=== PATIENT | female | born 1985 | race Caucasian/White ===

== ENCOUNTER 2016-08-12 23:18 | Emergency (ER) | payer OTHER ==
--- NOTE | 2016-08-13 01:41 | ED ORDER SUMMARY ---
..... Patient: KEIRA JOY OrderSheet [facility] VisitID: [id number] [address] [place] [address] 31y, F Registration Date/Time: 08/12/2016 ORDER SHEET Weight: 88.4 kg (stated) Allergies: Amoxicillin GENERAL ORDERS: POC - Urine hCG (00:43 08/13/2016 Ezra PEREZ) (0:46 Nara R.NContreras) Abdomen 1V (NO XRAY IF PREG TEST IS POSITIVE) Urgent (00:43 08/13/2016 Ezra PEREZ) (Ack 0:52 Petra) (0:58 Kell) MEDICATION ORDERS: IV FLUIDS: ORDER SHEET NOTES: [Electronically signed by Lorin Acuna R.N. (01:48 08/13/2016)] [Electronically signed by Matt Pizarro MD (11:40 08/14/2016)] [Electronically locked/signed by Lorin Acuna R.N. (01:48 08/13/2016)]
--- NOTE | 2016-08-13 01:41 | ED ORDER SUMMARY ---
..... Patient: KEIRA JOY OrderSheet [facility] VisitID: [id number] [address] [place] [address] 31y, F Registration Date/Time: 08/12/2016 ORDER SHEET Weight: 88.4 kg (stated) Allergies: Amoxicillin GENERAL ORDERS: POC - Urine hCG (00:43 08/13/2016 Ezra PEREZ) (0:46 Nara R.NContreras) Abdomen 1V (NO XRAY IF PREG TEST IS POSITIVE) Urgent (00:43 08/13/2016 Ezra PEREZ) (Ack 0:52 Petra) (0:58 Kell) MEDICATION ORDERS: IV FLUIDS: ORDER SHEET NOTES: [Electronically signed by Lorin Acuna R.N. (01:48 08/13/2016)] [Electronically signed by Matt Pizarro MD (11:40 08/14/2016)] [Electronically locked/signed by Lorin Acuna R.N. (01:48 08/13/2016)]
--- NOTE | 2016-08-13 01:41 | ED CLINICAL REPORT ---
Clinical Report - Physicians/Mid Levels [facility] [address] [place] [address] 08/12/2016 23:19 Patient: LETY JOY Time Seen: 00:34. Arrived- By private vehicle. Historian- patient. HISTORY OF PRESENT ILLNESS Chief Complaint: RECTAL FOREIGN BODY. Modifying factors. Not worsened by anything. Not relieved by anything. 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 She believes that it may be in her rectum. It was shaped as follows, the base was a spherical handle, the base above that was like a triangle which tapered to the top. She had a bowel movement without problems since then. She has no pain or other symptoms. No current or associated symptoms. Similar symptoms previously: None. REVIEW OF SYSTEMS No fever, cough, difficulty breathing, chest pain or abdominal pain. No nausea, vomiting or diarrhea. PAST HISTORY Negative. SOCIAL HISTORY Never smoker. ADDITIONAL NOTES The nursing notes have been reviewed. PHYSICAL EXAM Vital Signs: 08/13/2016 01:45 BP: 113/74. HR: 66. RR: 15. O2 saturation: 98%. Sykes-Lewis pain scale: 2/10. 08/12/2016 23:40 BP: 120/81. HR: 73. RR: 15. O2 saturation: 100%. Pain level now: 0/10. Appearance: Alert. No acute distress. ENT: Pharynx normal. CVS: Heart sounds normal. Respiratory: No respiratory distress. Breath sounds normal. Abdomen: No visible injury. Soft and nontender. Bowel sounds normal. Rectal: Rectal exam normal and nontender. Skin: Skin warm. Normal skin color. Extremities: Extremities exhibit normal ROM. No lower extremity edema. LABS, X-RAYS, AND EKG KUB: (Neg by my exam: RR PROCEDURE: XR ABDOMEN 1 VIEW INDICATION: RECTAL FOREIGN BODY TECHNIQUE: Single view supine abdomen. COMPARISON: None. FINDINGS: No free intraperitoneal air. Moderate stool present. Nonspecific, nonobstructive bowel gas pattern. No suspicious mass, mass effect, or calcifications. No foreign bodies. The visible osseous structures are intact. IMPRESSION: 1. Normal single view abdomen. 2. No radiodense foreign bodies. Dictated by: ROMMEL PHAN MD D: ANDREIA;08/13/16 0739 <Electronically signed by ROMMEL PHAN MD in OV> 08/13/16738). The X-rays were independently viewed by me and interpreted by the radiologist. PROGRESS AND PROCEDURES Course of Care: 07:35 08/13/16. discussed followup with Dr Larsen No definite evidence of current rectal FB but is is hard to prove a negative. Lety may need a lower endoscopy as the potential for rectal complications could be serious. Disposition: Discharged. Condition: stable. CLINICAL IMPRESSION POSSIBLE RECTAL FOREIGN BODY. INSTRUCTIONS (I COULD NOT FIND THE FOREIGN BODY CAREFULLY SEARCH THE ROOM WHERE THE OBJECT HILARIO BE. IF IT IS FOUND THE PROBLEM IS OVER. IF IT CANNOT BE FOUND SEE THE GENERAL SURGEON. YOU MAY NEED TO HAVE YOUR COLON/RECTUM EXAMINED WITH AN ENDOSCOPE. UNTREATED A FOREIGN BODY COULD RESULT IN COLON PERFORATION.). Understanding of the discharge instructions verbalized by patient. Follow-up with: Nicola Canchola MD, General Surgeon, , [facility], [address] [place] [address] Follow up today. Call for the next available appointment. (Electronically signed by Matt Pizarro MD 08/14/2016 11:40)
--- NOTE | 2016-08-13 01:41 | ED NURSING NOTES ---
Clinical Report - Nurses [facility] [address] [place] [address] 08/12/2016 23:19 Patient: KEIRA JOY TRIAGE Triage time 23:41. Acuity: LEVEL 4. Chief Complaint: (possible foreign object in rectum). Alert. No acute distress. --23:45 Lorin Acuna R.N. 23:40 08/12/16. BP: 120/81. HR: 73. RR: 15. O2 saturation: 100%. Pain level now: 0/10. --23:45 Lorin Acuna R.N. Weight: 88.4 kg stated. Height/Length: 68 inches Per Patient. BMI: 29.6. --23:44 Lorin Acuna R.N. Medications FLUoxetine HCl Oral. --23:43 Lorin Acuna R.N. Allergies Amoxicillin.(itching, rash) --23:44 Lorin Acuna R.N. History Arrived by private vehicle. Historian: patient. Primary physician (Lisa). ( pt states she was using a new sex toy and felt it inside her and then states "It was gone", she could not find it in the room and thinks it may be in her rectum. Pt has had BM since.). This started just prior to arrival. Onset. (about 1 hours [employer] INST[employer]ER). PAST MEDICAL HX: Immunizations: up-to-date. Last normal menstrual period was 4 weeks ago. Sexual history - sexually active. No contraception. SOCIAL HX: Never smoker. Occasional alcohol use. No drug use. NUTRITIONAL RISK ASSESSMENT: The nutritional risk assessment revealed no deficiencies. FUNCTIONAL ASSESSMENT: Functional assessment: no impairments noted. --23:45 Lroin Acuna R.N. PROBLEMS: no known problems. ADDITIONAL SURGERIES: no known surgeries. PHYSICAL ASSESSMENT Ambulatory to room. GENERAL / NEURO / PSYCH: Alert. Oriented X 4. Appears in no acute distress. HEENT: Mucous membranes are pink. RESPIRATORY: Respirations not labored. CVS: Capillary refill less than 2 seconds. SKIN: Skin is warm and dry. --23:45 Lorin Acuna R.N. NURSING PROGRESS NOTES Head of bed elevated. Two patient identifiers checked. Call light placed in reach. Side rails up x 1. Bed placed in lowest position. Brakes of bed on. --23:45 Lorin Acuna R.N. Patient ready for evaluation- chart flagged. --23:45 Lorin Acuna R.N. 00:40- pt ambulates to restroom to obtain urine sample. normal gait noted, no obvious distress. --00:47 Lorin Acuna R.N. 00:45. Patient ID band checked for patient name and birthdate: patient confirmed. Instructions provided to collect clean catch urine and patient verbalized understanding urine collected with return of yellow-colored clear urine; sample sent to lab. Specimen labeled in the presence of the patient. Urine test negative. animal control officer check passed. --00:47 Lorin Acuna R.N. DISPOSITION / DISCHARGE Condition at departure: stable. No learning barriers present. Discharge instructions provided and reviewed with the patient. Follow up contact number. Patient verbalized understanding. Written instructions provided in [place]raini. The patient was discharged home. She left the Emergency Department ambulatory and via private vehicle. Patient driving. --01:48 Lorin Acuna R.N. 01:45 08/13/16. BP: 113/74. HR: 66. RR: 15. O2 saturation: 98% on room air. Temp: deferred. Sykes-Lewis pain scale: 2/10. --01:48 Lorin Acuna R.N. Locked/Released at 08/13/2016 1:48 by Lorin Acuna R.N.
--- NOTE | 2016-08-13 01:41 | ED NURSING NOTES ---
Clinical Report - Nurses [facility] [address] [place] [address] 08/12/2016 23:19 Patient: KEIRA JOY TRIAGE Triage time 23:41. Acuity: LEVEL 4. Chief Complaint: (possible foreign object in rectum). Alert. No acute distress. --23:45 Lorin Acuna R.N. 23:40 08/12/16. BP: 120/81. HR: 73. RR: 15. O2 saturation: 100%. Pain level now: 0/10. --23:45 Lorin Acuna R.N. Weight: 88.4 kg stated. Height/Length: 68 inches Per Patient. BMI: 29.6. --23:44 Lorin Acuna R.N. Medications FLUoxetine HCl Oral. --23:43 Lorin Acuna R.N. Allergies Amoxicillin.(itching, rash) --23:44 Lorin Acuna R.N. History Arrived by private vehicle. Historian: patient. Primary physician (Lisa). ( pt states she was using a new sex toy and felt it inside her and then states "It was gone", she could not find it in the room and thinks it may be in her rectum. Pt has had BM since.). This started just prior to arrival. 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 PAST MEDICAL HX: Immunizations: up-to-date. Last normal menstrual period was 4 weeks ago. Sexual history - sexually active. No contraception. SOCIAL HX: Never smoker. Occasional alcohol use. No drug use. NUTRITIONAL RISK ASSESSMENT: The nutritional risk assessment revealed no deficiencies. FUNCTIONAL ASSESSMENT: Functional assessment: no impairments noted. --23:45 Lorin Acuna R.N. PROBLEMS: no known problems. ADDITIONAL SURGERIES: no known surgeries. PHYSICAL ASSESSMENT Ambulatory to room. GENERAL / NEURO / PSYCH: Alert. Oriented X 4. Appears in no acute distress. HEENT: Mucous membranes are pink. RESPIRATORY: Respirations not labored. CVS: Capillary refill less than 2 seconds. SKIN: Skin is warm and dry. --23:45 Lorin Acuna R.N. NURSING PROGRESS NOTES Head of bed elevated. Two patient identifiers checked. Call light placed in reach. Side rails up x 1. Bed placed in lowest position. Brakes of bed on. --23:45 Lorin Acuna R.N. Patient ready for evaluation- chart flagged. --23:45 Lorin Acuna R.N. 00:40- pt ambulates to restroom to obtain urine sample. normal gait noted, no obvious distress. --00:47 Lorin Acuna R.N. 00:45. Patient ID band checked for patient name and birthdate: patient confirmed. Instructions provided to collect clean catch urine and patient verbalized understanding urine collected with return of yellow-colored clear urine; sample sent to lab. Specimen labeled in the presence of the patient. Urine test negative. assistant plant control operator check passed. --00:47 Lorin Acuna R.N. DISPOSITION / DISCHARGE Condition at departure: stable. No learning barriers present. Discharge instructions provided and reviewed with the patient. Follow up contact number. Patient verbalized understanding. Written instructions provided in Nigerian. The patient was discharged home. She left the Emergency Department ambulatory and via private vehicle. Patient driving. --01:48 Lorin Acuna R.N. 01:45 08/13/16. BP: 113/74. HR: 66. RR: 15. O2 saturation: 98% on room air. Temp: deferred. Sykes-Lewis pain scale: 2/10. --01:48 Lorin Acuna R.N. Locked/Released at 08/13/2016 1:48 by Lorin Acuna R.N.
--- NOTE | 2016-08-13 01:41 | ED CLINICAL REPORT ---
Clinical Report - Physicians/Mid Levels [facility] [address] [place] [address] 08/12/2016 23:19 Patient: LETY JOY Time Seen: 00:34. Arrived- By private vehicle. Historian- patient. HISTORY OF PRESENT ILLNESS Chief Complaint: RECTAL FOREIGN BODY. Modifying factors. Not worsened by anything. Not relieved by anything. 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 She believes that it may be in her rectum. It was shaped as follows, the base was a spherical handle, the base above that was like a triangle which tapered to the top. She had a bowel movement without problems since then. She has no pain or other symptoms. No current or associated symptoms. Similar symptoms previously: None. REVIEW OF SYSTEMS No fever, cough, difficulty breathing, chest pain or abdominal pain. No nausea, vomiting or diarrhea. PAST HISTORY Negative. SOCIAL HISTORY Never smoker. ADDITIONAL NOTES The nursing notes have been reviewed. PHYSICAL EXAM Vital Signs: 08/13/2016 01:45 BP: 113/74. HR: 66. RR: 15. O2 saturation: 98%. Sykes-Lewis pain scale: 2/10. 08/12/2016 23:40 BP: 120/81. HR: 73. RR: 15. O2 saturation: 100%. Pain level now: 0/10. Appearance: Alert. No acute distress. ENT: Pharynx normal. CVS: Heart sounds normal. Respiratory: No respiratory distress. Breath sounds normal. Abdomen: No visible injury. Soft and nontender. Bowel sounds normal. Rectal: Rectal exam normal and nontender. Skin: Skin warm. Normal skin color. Extremities: Extremities exhibit normal ROM. No lower extremity edema. LABS, X-RAYS, AND EKG KUB: (Neg by my exam: RR PROCEDURE: XR ABDOMEN 1 VIEW INDICATION: RECTAL FOREIGN BODY TECHNIQUE: Single view supine abdomen. COMPARISON: None. FINDINGS: No free intraperitoneal air. Moderate stool present. Nonspecific, nonobstructive bowel gas pattern. No suspicious mass, mass effect, or calcifications. No foreign bodies. The visible osseous structures are intact. IMPRESSION: 1. Normal single view abdomen. 2. No radiodense foreign bodies. Dictated by: ROMMEL PHAN MD D: ANDREIA;08/13/16 0739 <Electronically signed by ROMMEL PHAN MD in OV> 08/13/16738). The X-rays were independently viewed by me and interpreted by the radiologist. PROGRESS AND PROCEDURES Course of Care: 07:35 08/13/16. discussed followup with Dr Larsen No definite evidence of current rectal FB but is is hard to prove a negative. Lety may need a lower endoscopy as the potential for rectal complications could be serious. Disposition: Discharged. Condition: stable. CLINICAL IMPRESSION POSSIBLE RECTAL FOREIGN BODY. INSTRUCTIONS (I COULD NOT FIND THE FOREIGN BODY CAREFULLY SEARCH THE ROOM WHERE THE OBJECT HILARIO BE. IF IT IS FOUND THE PROBLEM IS OVER. IF IT CANNOT BE FOUND SEE THE GENERAL SURGEON. YOU MAY NEED TO HAVE YOUR COLON/RECTUM EXAMINED WITH AN ENDOSCOPE. UNTREATED A FOREIGN BODY COULD RESULT IN COLON PERFORATION.). Understanding of the discharge instructions verbalized by patient. Follow-up with: Nicola Canchola MD, General Surgeon, , [facility], [address] [place] [address] Follow up today. Call for the next available appointment. (Electronically signed by Matt Pizarro MD 08/14/2016 11:40)
--- NOTE | 2016-08-13 07:39 | DIAGNOSTIC IMAGING REPORT ---
PROCEDURE: XR ABDOMEN 1 VIEW INDICATION: RECTAL FOREIGN BODY TECHNIQUE: Single view supine abdomen. COMPARISON: None. FINDINGS: No free intraperitoneal air. Moderate stool present. Nonspecific, nonobstructive bowel gas pattern. No suspicious mass, mass effect, or calcifications. No foreign bodies. The visible osseous structures are intact. IMPRESSION: 1. Normal single view abdomen. 2. No radiodense foreign bodies.
--- NOTE | 2016-08-14 11:41 | ED DISCHARGE INSTRUCTIONS ---
Patient: KEIRA JOY General Instructions [facility] VisitID: [id number] [address] [place] [place] [address] 31y, F Registration Date/Time: 08/12/2016 POSSIBLE RECTAL FOREIGN BODY. INSTRUCTIONS (I COULD NOT FIND THE FOREIGN BODY CAREFULLY SEARCH THE ROOM WHERE THE OBJECT HILARIO BE. IF IT IS FOUND THE PROBLEM IS OVER. IF IT CANNOT BE FOUND SEE THE GENERAL SURGEON. YOU MAY NEED TO HAVE YOUR COLON/RECTUM EXAMINED WITH AN ENDOSCOPE. UNTREATED A FOREIGN BODY COULD RESULT IN COLON PERFORATION.). Understanding of the discharge instructions verbalized by patient. Follow-up with: Nicola Canchola MD, General Surgeon, , [facility], [address] [place] [address] Follow up today. Call for the next available appointment. (Electronically signed by Matt Pizarro MD 08/14/2016 11:40)
--- NOTE | 2016-08-14 11:41 | ED MAR SUMMARY ---
..... Medication Administration Record [facility] [address] [place], [place] [id number] Patient: KEIRA JOY Visit ID: [id number] 31y, F Weight: 88.4 kg Height/Length: 68 in BMI: 29.6 ALLERGIES: Amoxicillin
--- NOTE | 2016-08-14 11:41 | ED MED RECONCILIATION SUMMARY ---
Patient: KEIRA JOY Medication Reconciliation Report [facility] VisitID: [id number] [address] [place] [address] 31y, F Registration Date/Time: 08/12/2016 Weight: 88.4 kg Height/Length: 68 in. BMI: 29.6 ALLERGIES: Amoxicillin The patient's Home Medications are listed below: THE FOLLOWING MEDICATIONS NEED TO BE RECONCILED: FLUoxetine HCl Oral The source(s) of the original Home Medication information: Not obtained. The following Medications were given to the patient in the Emergency Department: None. The following Medications were prescribed to the patient: None.
--- NOTE | 2016-08-14 11:41 | ED MAR SUMMARY ---
..... Medication Administration Record [facility] [address] [place], [place] [id number] Patient: KEIRA JOY Visit ID: [id number] 31y, F Weight: 88.4 kg Height/Length: 68 in BMI: 29.6 ALLERGIES: Amoxicillin
--- NOTE | 2016-08-14 11:41 | ED MED RECONCILIATION SUMMARY ---
Patient: KEIRA JOY Medication Reconciliation Report [facility] VisitID: [id number] [address] [place] [place] [address] 31y, F Registration Date/Time: 08/12/2016 Weight: 88.4 kg Height/Length: 68 in. BMI: 29.6 ALLERGIES: Amoxicillin The patient's Home Medications are listed below: THE FOLLOWING MEDICATIONS NEED TO BE RECONCILED: FLUoxetine HCl Oral The source(s) of the original Home Medication information: Not obtained. The following Medications were given to the patient in the Emergency Department: None. The following Medications were prescribed to the patient: None.
--- NOTE | 2016-08-14 11:41 | ED DISCHARGE INSTRUCTIONS ---
Patient: KEIRA JOY General Instructions [facility] VisitID: [id number] [address] [place] [place] [address] 31y, F Registration Date/Time: 08/12/2016 POSSIBLE RECTAL FOREIGN BODY. INSTRUCTIONS (I COULD NOT FIND THE FOREIGN BODY CAREFULLY SEARCH THE ROOM WHERE THE OBJECT HILARIO BE. IF IT IS FOUND THE PROBLEM IS OVER. IF IT CANNOT BE FOUND SEE THE GENERAL SURGEON. YOU MAY NEED TO HAVE YOUR COLON/RECTUM EXAMINED WITH AN ENDOSCOPE. UNTREATED A FOREIGN BODY COULD RESULT IN COLON PERFORATION.). Understanding of the discharge instructions verbalized by patient. Follow-up with: Nicola Canchola MD, General Surgeon, , [facility], [address] [place] [address] Follow up today. Call for the next available appointment. (Electronically signed by Matt Pizarro MD 08/14/2016 11:40)
== END 2016-08-13 01:45 | disposition home or self-care (01) ==
LOC: ED SRH 23:18
DX: Z71.1 Person with feared health complaint in whom no diagnosis is made (principal); X58.XXXA Exposure to other specified factors, initial encounter; Y93.89 Activity, other specified; Y92.9 Unspecified place or not applicable; Y99.9 Unspecified external cause status